=== PATIENT | female | born 1995 | race Caucasian/White ===

== ENCOUNTER 2024-08-10 14:36 | Emergency (ER) | payer OTHER ==
[~2024-08-10] VITALS: Ht 152.4 cm; Wt 79.4 kg
[2024-08-10] MEDS ORDERED: SYNTHROID88 MCG PO (15:43)
[2024-08-10] MEDS ORDERED: KETOROLAC TROMETHAMINE 30 MG VIAL IV ONE (16:45)
[2024-08-10] MEDS ORDERED: FAMOtidine 10 MG/ML (4ML VIAL) IV PUSH ONE (16:45)
[2024-08-10 16:58] LABS: HEMATOCRIT 41.9 % (36.0-45.00); MEAN CELL VOLUME 86.8 fL (80.00-100.00); MEAN CORPUSCULAR HEMOGLOBIN 29.1 pg (27.00-32.0); MEAN CORPUSCULAR HGB CONC 33.5 g/dl (32.0-36.0); PLATELET COUNT 264 K/uL (150-450); RED BLOOD COUNT 4.83 M/uL (4.00-6.00); RED CELL DISTRIBUTION WIDTH 14.7 % (11.5-14.5)
[2024-08-10 17:16] LABS: PH,URINE 5.5 (5.0-8.0); URINE APPEARANCE Clear; URINE BILIRRUBIN Negative (NEGATIVE); URINE BLOOD Large; URINE COLOR Yellow; URINE EPITHELIAL CELLS 42.4 uL (0.0-38.8); URINE GLUCOSE Negative (NEGATIVE); URINE KETONE Trace (NEGATIVE); URINE LEUKOCYTE Small; URINE NITRATE Negative; URINE PROTEIN 30 (NEGATIVE); URINE RBC 281.5 uL (0.0-20.8); URINE WBC 152.3 uL (0.0-23.2)
[2024-08-10 17:19] LABS: INR 1.02; PARTIAL THROMBOPLASTIN TIME 31.2 SECONDS (22.0-34.0); PROTHROMBIN TIME 11.1 SECONDS (9.0-11.5)
[2024-08-10 17:29] LABS: ALBUMIN 3.8 gm/dL (3.4-5.0); ALKALINE PHOSPHATASE 95 U/L (50-136); ALT/SGPT 33 U/L (12-78); ANION GAP 9 (10.0-20.0); AST/SGOT 17 U/L (15-37); BILIRUBIN TOTAL 0.46 mg/dL (0.3-1.2); BLOOD UREA NITROGEN 8 mg/dL (7-18); BUN CREA RATIO 11 (7.0-25.0); CARBON DIOXIDE 30 mEq/L (21-32); CHLORIDE 105 mmol/L (98-107); CREATININE SERUM 0.76 mg/dL (0.55-1.02); GFR 88.76; GLOBULINA 4.6 G/DL (2.4-3.5); GLUCOSE FASTING 88 mg/dL (65-100); HCG QUANTITATIVE < 1 mUI/mL (1-3); OSMOLALITY SERUM 277 MOSM/KG (275-295); SODIUM 140 mmol/L (136-145); TOTAL PROTEIN 8.4 gm/dL (6.4-8.2)
[2024-08-10 17:41] LABS: URINE CAST 0.29 uL (0.0-1.40)
[2024-08-10] MEDS ORDERED: BACTRIM DS TAB1 EACH PO (20:49)
[2024-08-10] MEDS ORDERED: NORFLEX100MG PO (20:49)
[2024-08-10] MEDS ORDERED: PEPCID AC20 MG PO (20:49)
== END 2024-08-10 21:05 | disposition home or self-care (01) ==
LOC: ER 14:37
PROVIDERS: General Practice
DX: N83.291 Other ovarian cyst, right side (principal); E03.9 Hypothyroidism, unspecified; Z97.5 Presence of (intrauterine) contraceptive device